=== PATIENT | female | born 1935 | race Caucasian/White ===

== ENCOUNTER → 2017-10-13 10:27 | Outpatient (CLI) | payer MEDICARE, OTHER, SELFPAY ==
[2017-10-13 12:23] LABS: Anion Gap 8 (5-15); BUN 16 mg/dL (7-18); BUN/Creat Ratio 22.2 RATIO (10-20); Calcium,Total 9.3 mg/dL (8.5-10.1); Chloride 105 mmol/L (98-107); Creatinine, Serum 0.72 mg/dL (0.55-1.02); EST Glomerular Filtration Rate 82 mL/min (>60); Est Glom Filt Rate - Afr Amer 100 mL/min (>60); Glucose 89 mg/dL (74-106); Potassium 3.7 mmol/L (3.5-5.1); Sodium Level 142 mmol/L (136-145); T4 Free Direct 1.12 ng/dL (0.76-1.46); Thyroid Stim Hormone (TSH) 4.06 uIU/mL (0.358-3.74)
== END ==
PROVIDERS: Family Provider Family Medicine; PCP Family Medicine; Visit Provider Family Medicine
DX: R94.6 Abnormal results of thyroid function studies (principal); I10 Essential (primary) hypertension
CPT/HCPCS: 36415; 80048; 84439; 84443

== ENCOUNTER 2017-11-12 14:44 | Emergency (ER) | payer OTHER, MEDICARE, SELFPAY ==
[2017-11-12 14:45] VITALS: BP 154/97; PULSE 75; RESP 18; TEMP 36.8; O2SAT 96; BMI 27.6
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
[2017-11-12 15:52] LABS: Absolute Lymphocyte Count 1.35 X10^3/ul (0.83-4.51); Absolute Neutrophil Count 1.9 X10^3/uL (2.0-7.7); Basophil# 0.05 X10^3/uL; Basophil% 1.2 % (0-1); Eosinophil# 0.14 X10^3/uL; Eosinophils% 3.5 % (0-5); Hematocrit 36.2 % (37-47); Hemoglobin 12.2 g/dl (12.0-15.0); Lymphocyte # 1.35 X10^3/ul (4.0); Lymphocyte % 33.7 % (19-41); Mean Corp Hgb Conc 33.7 g/gl (32-36); Mean Corpuscular Hgb 31.3 pg (27.0-32.0); Mean Corpuscular Volume 92.8 fL (81-99); Mean Platelet Vol. 10.3 fl (6.2-12.0); Monocyte# 0.52 X10^3/uL; Neutrophil # 1.93 X10^3/uL (2.7-7.7); Neutrophil % 48.1 % (47-70); Platelet Count 190 K/mm3 (150-450); RBC Distribution Width CV 12.2 % (11.6-14.6)
[2017-11-12 15:54] LABS: POSITIVE COUNT NO; POSITIVE DIFFERENTIAL NO; POSITIVE MORPHOLOGY NO
[2017-11-12 16:05] LABS: ALB/GLOB Ratio 1.4 RATIO (0.9-2.4); AST(SGOT) 28 U/L (15-37); Alanine Aminotransfer ALT/SGPT 28 U/L (13-56); Albumin, Serum 3.9 g/dL (3.2-5.0); Alkaline Phosphatase 82 U/L (45-117); Anion Gap 6 (5-15); BUN 16 mg/dL (7-18); BUN/Creat Ratio 22.2 RATIO (10-20); Calcium,Total 9.1 mg/dL (8.5-10.1); Chloride 104 mmol/L (98-107); Creatinine, Serum 0.72 mg/dL (0.55-1.02); EST Glomerular Filtration Rate 83 mL/min (>60); Est Glom Filt Rate - Afr Amer 100 mL/min (>60); Estimated Creatinine Clearance 38.86 ml/min; Globulin 2.7 g/dL (2.2-4.2); Glucose 95 mg/dL (74-106); Lipase 142 U/L (73-393); Potassium 3.6 mmol/L (3.5-5.1); Protein, Total 6.6 g/dL (6.4-8.2); Sodium Level 137 mmol/L (136-145)
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
[2017-11-12 16:49] LABS: Mucous, Urine 0 SEEN /hpf (<or=2+); Red Blood Cells-Urine 0 SEEN /hpf (0-5)
[2017-11-12 17:04] VITALS: BP 149/85; PULSE 74; RESP 13; O2SAT 97
[2017-11-12] MEDS: Diphth,Pertuss(Acell),Tet Vac 0.5 ML Vial IM (17:04)
[2017-11-12 17:10] LABS: Color, Urine Straw (Yellow); Glucose, Dipstick Normal (Normal); Ketone-Dipstick Negative (Negative); Leukocyte Esterase-Dipstick 25 /ul (Negative); Nitrite-Dipstick Negative (Negative); Occult Blood-Urine Negative /ul (Negative); Protein-Dipstick Negative (Negative); Urine Bilirubin Dipstick Negative (Negative); Urine Clarity Sl. Cloudy (Clear); Urine Urobilinogen Normal (Normal)
[2017-11-12 17:19] LABS: Bacteria RARE /hpf (None Seen); Squamous Epithelial Cells - UA 0-5 SEEN /hpf (5-10)
[2017-11-12 17:20] LABS: White Blood Cells 0-5 SEEN /hpf (0-5)
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
[2017-11-12] MEDS: oxyCODONE 5 MG Tablet PO (17:52)
[2017-11-12 19:00] VITALS: BP 140/91; PULSE 10; RESP 75; O2SAT 95
[2017-11-12] MEDS: Morphine 2 MG/ML Syringe IV (21:07)
[2017-11-12] MEDS: Ondansetron 4 MG/2 ML Vial IV (21:07)
[2017-11-12 21:13] VITALS: BP 171/94; PULSE 83; RESP 14; O2SAT 96
[2017-11-12 22:06] VITALS: BP 150/87; PULSE 80; RESP 12; O2SAT 95
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
== END 2017-11-12 22:10 | disposition short-term general hospital (02) ==
PROVIDERS: Emergency Provider Emergency Medicine; Family Provider Family Medicine; PCP Family Medicine
DX: S22.20XA Unspecified fracture of sternum, initial encounter for closed fracture (principal); S22.31XA Fracture of one rib, right side, initial encounter for closed fracture; S80.02XA Contusion of left knee, initial encounter; S80.01XA Contusion of right knee, initial encounter; S51.811A Laceration without foreign body of right forearm, initial encounter; Z23 Encounter for immunization; V43.62XA Car passenger injured in collision with other type car in traffic accident, initial encounter; Y93.9 Activity, unspecified; Y92.411 Interstate highway as the place of occurrence of the external cause; Y99.9 Unspecified external cause status; I10 Essential (primary) hypertension; E78.00 Pure hypercholesterolemia, unspecified
CPT/HCPCS: 70450; 71250; 71275; 72125; 73090; 73562; 74176; 80053; 81001; 83690; 84484; 85025; 90715; 93005; 99285; Q9967; A4216; J2405

== ENCOUNTER → 2018-02-16 09:14 | Outpatient (CLI) | payer MEDICARE, OTHER, SELFPAY ==
[2018-02-16 12:11] LABS: Absolute Lymphocyte Count 1.17 X10^3/ul (0.83-4.51); Basophil# 0.07 X10^3/uL; Basophil% 2.3 % (0-1); Eosinophil# 0.39 X10^3/uL; Eosinophils% 12.7 % (0-5); Hematocrit 37.1 % (37-47); Hemoglobin 12.4 g/dl (12.0-15.0); Lymphocyte # 1.17 X10^3/ul (4.0); Lymphocyte % 38.2 % (19-41); Mean Corp Hgb Conc 33.4 g/gl (32-36); Mean Corpuscular Hgb 31.7 pg (27.0-32.0); Mean Corpuscular Volume 94.9 fL (81-99); Monocyte# 0.46 X10^3/uL; Neutrophil # 0.97 X10^3/uL (2.7-7.7); Neutrophil % 31.8 % (47-70); Platelet Count 207 K/mm3 (150-450); RBC Distribution Width CV 12.6 % (11.6-14.6); RBC Distribution Width SD 42.6 fl (35.1-43.9); Red Blood Count 3.91 M/mm3 (4.2-5.4); White Blood Count 3.1 K/mm3 (4.4-11.0)
[2018-02-16 12:13] LABS: Differential Indicated SCAN CRITERIA MET; POSITIVE COUNT NO; POSITIVE DIFFERENTIAL YES; POSITIVE MORPHOLOGY NO
[2018-02-16 12:31] LABS: ALB/GLOB Ratio 1.3 RATIO (0.9-2.4); AST(SGOT) 24 U/L (15-37); Alanine Aminotransfer ALT/SGPT 30 U/L (13-56); Albumin, Serum 3.9 g/dL (3.2-5.0); Alkaline Phosphatase 82 U/L (45-117); Anion Gap 9 (5-15); BUN 12 mg/dL (7-18); BUN/Creat Ratio 16.4 RATIO (10-20); Chloride 106 mmol/L (98-107); Creatinine, Serum 0.73 mg/dL (0.55-1.02); EST Glomerular Filtration Rate 81 mL/min (>60); Est Glom Filt Rate - Afr Amer 98 mL/min (>60); Globulin 2.9 g/dL (2.2-4.2); Glucose 97 mg/dL (74-106); Potassium 3.8 mmol/L (3.5-5.1); Protein, Total 6.8 g/dL (6.4-8.2); Sodium Level 144 mmol/L (136-145); T4 Free Direct 1.06 ng/dL (0.76-1.46); Thyroid Stim Hormone (TSH) 3.48 uIU/mL (0.358-3.74)
== END ==
PROVIDERS: Family Provider Family Medicine; PCP Family Medicine; Visit Provider Family Medicine
DX: I10 Essential (primary) hypertension (principal); R94.6 Abnormal results of thyroid function studies; G47.00 Insomnia, unspecified
CPT/HCPCS: 36415; 80053; 84439; 84443; 85025

== ENCOUNTER → 2018-03-30 13:18 | Outpatient (CLI) | payer MEDICARE, OTHER, SELFPAY ==
[2018-03-30 15:49] LABS: Absolute Neutrophil Count 2.2 X10^3/uL (2.0-7.7); Basophil# 0.09 X10^3/uL; Basophil% 1.9 % (0-1); Eosinophil# 0.27 X10^3/uL; Eosinophils% 5.8 % (0-5); Hematocrit 37.6 % (37-47); Hemoglobin 12.3 g/dl (12.0-15.0); Lymphocyte % 34.2 % (19-41); Mean Corp Hgb Conc 32.7 g/gl (32-36); Mean Corpuscular Hgb 31.5 pg (27.0-32.0); Mean Corpuscular Volume 96.4 fL (81-99); Mean Platelet Vol. 11.2 fl (6.2-12.0); Monocyte# 0.52 X10^3/uL; Monocyte% 11.1 % (0-10); Neutrophil # 2.18 X10^3/uL (2.7-7.7); Neutrophil % 46.6 % (47-70); POSITIVE COUNT NO; POSITIVE DIFFERENTIAL NO; POSITIVE MORPHOLOGY NO; Platelet Count 239 K/mm3 (150-450); RBC Distribution Width SD 44.2 fl (35.1-43.9); White Blood Count 4.7 K/mm3 (4.4-11.0)
== END ==
PROVIDERS: Family Provider Family Medicine; PCP Family Medicine; Visit Provider Family Medicine
DX: D72.829 Elevated white blood cell count, unspecified (principal)
CPT/HCPCS: 36415; 85025

== ENCOUNTER → 2018-06-13 16:15 | Outpatient (CLI) | payer MEDICARE, OTHER, SELFPAY ==
--- NOTE | 2018-06-13 16:17 | CT_ITS ---
STUDY: CT ABDOMEN AND PELVIS WITHOUT CONTRAST REASON FOR EXAM: Female, 83 years old. Right lateral wall hernia RADIATION DOSAGE (If Supplied By Facility): CTDIvol = ( 11.21 ) mGy, DLP = ( 443.94 ) mGycm TECHNIQUE: Transaxial images were obtained from the dome of the diaphragm to the symphysis pubis without oral contrast, and without intravenous contrast. Sagittal and coronal images were reconstructed. Individualized dose optimization techniques were used for this CT. COMPARISON: None. FINDINGS: The lung bases are clear. A small 1.6 cm cyst is seen near the inferior pole of the right kidney. A second 1.3 cm cyst is in the left lobe.. No dilated intrahepatic biliary radicles. The gallbladder is normal with no calcifications within it. There is no pericholecystic fluid collection or streakiness The spleen is normal. The pancreas is normal. Both adrenals are normal. The kidneys are normal with no masses, calculi or hydronephrosis The stomach is normal. There is no bowel distention, acute appendicitis or diverticulitis. No constricting lesions are seen in large bowel. The abdominal wall is intact with no hernias. Specifically there is no right abdominal wall hernia. There is no ascites or any free intraperitoneal air. No indication of epiploic appendagitis The vascular structures in the retroperitoneum are normal. There is no retrocrural, retroperitoneal or mesenteric adenopathy. Bilateral total hip replacements. Extensive degenerative changes of the lower thoracic and lumbosacral spines plates and transpedicular screws through almost all the vertebral bodies. The urinary bladder is normal.--A pessary is in place. The uterus is not visualized.. There is no inguinal or pelvic adenopathy. There is no inguinal hernia. . CT/Abdomen/Pelvis without Cont IMPRESSION: No demonstration of an abdominal wall hernia. No acute findings in the abdomen or pelvis. Extensive degenerative changes of the lumbosacral spine with plates and transpedicular screws. Electronically Signed: Satya Guerra MD at 5:30 EST Tel , Service support ,
== END ==
PROVIDERS: Family Provider Family Medicine; PCP Family Medicine; Referring Provider Family Medicine; Visit Provider Family Medicine
DX: K43.9 Ventral hernia without obstruction or gangrene (principal)
CPT/HCPCS: 74176

== ENCOUNTER → 2018-09-28 11:04 | Outpatient (CLI) | payer MEDICARE, OTHER, SELFPAY ==
--- NOTE | 2018-09-28 11:08 | BI_ITS ---
MAMMOGRAPHY - BILATERAL SCREENING REASON FOR EXAM: Female, 83 years old. Routine annual screening examination. PERTINENT HISTORY: Remote right stereotactic breast biopsies. History of bilateral breast reduction surgery. TECHNIQUE: Digital bilateral breast linnea (3D mammographic acquisition) in the CC and MLO projections. 2-D mediolateral oblique (MLO) and craniocaudad (CC) views of both breasts were obtained. CAD: Full Field Digital Mammography with Computer Added Detection was performed. COMPARISON: Comparison is made with prior study dated February 15, 2017. FINDINGS: Breast Composition: There are scattered areas of fibroglandular density. There are no dominant masses or suspicious calcifications. Once again, 2 tissue clip markers are seen in the deep medial upper aspect of the right breast. No other significant abnormalities are identified. There has been no significant change since the prior study. BI/SCREENING MAMM (CAD), BILAT IMPRESSION: Stable bilateral screening mammogram. Yearly follow-up mammogram recommended. (A) ASSESSMENT CATEGORY: BIRADS Category 2: Benign. A letter regarding these results will be sent to the patient by the facility within 30 days. Approximately 10% of breast cancers are not detected by mammography. A normal mammogram should not delay biopsy of a clinically suspicious abnormality. [id number] Electronically Signed: Juan C Berry, at 12:40 EDT , Service support ,
--- NOTE | 2018-09-28 11:08 | BD_ITS ---
STUDY: DUAL ENERGY X-RAY ABSORPTIOMETRY / DXA REASON FOR EXAM: Female, 83 years old. The patient is postmenopausal. Loss of height. TECHNIQUE: Bone Mineral Density (BMD) measurements of both forearms were obtained. COMPARISON: None. FINDINGS: Right Forearm: g/cm2 (0.594) / T-score (-3.3) / Z-score (-0.4) Left Forearm: g/cm2 (0.537) / T-score (-4.0) / Z-score (-1.0) BD/Dexa Bone Density/Append Skel IMPRESSION: The patient is considered osteoporotic as outlined below according to World Rosahn Organization (WHO) criteria with a high fracture risk. Reference Information: The T-score is the number of standard deviations above or below the standard which is normal for young adults at their peak bone mineral density. The World Health Organization (WHO) interprets the T-scores as follows: Above -1 Normal bone density Between -1 and -2.5 Osteopenia Equal to / or below -2.5 Osteoporosis As a practical clinical guideline, osteopenia may be graded as follows: Mild -1 through -1.5 Moderate -1.6 through -2.0 Severe -2.1 through -2.4 The Z-score is the number of standard deviations above or below age-matched controls. A Z-score of less than -1.5 would be considered abnormal. References: 1. NIH Osteoporosis and Related Bone Diseases http://www.osteo.org 2. International Society for Clinical Densitometry http://www.iscd.org 3. National Osteoporosis Foundation http://www.nof.org Electronically Signed: Juan C Berry, at 15:06 EDT , Service support ,
== END ==
PROVIDERS: Family Provider Family Medicine; PCP Family Medicine; Referring Provider Family Medicine; Visit Provider Family Medicine
DX: Z12.31 Encounter for screening mammogram for malignant neoplasm of breast (principal); M81.0 Age-related osteoporosis without current pathological fracture
CPT/HCPCS: 77063; 77067; 77081

== ENCOUNTER → 2019-02-07 10:08 | Outpatient (CLI) | payer MEDICARE, OTHER, SELFPAY ==
[2019-02-07 12:22] LABS: Absolute Lymphocyte Count 1.68 X10^3/uL (0.83-4.51); Absolute Neutrophil Count 1.4 X10^3/uL (2.0-7.7); Basophil# 0.05 X10^3/uL; Basophil% 1.3 % (0-1); Eosinophil# 0.19 X10^3/uL; Eosinophils% 4.8 % (0-5); Hematocrit 39.5 % (37-47); Lymphocyte # 1.68 X10^3/ul (4.0); Lymphocyte % 42.2 % (19-41); Mean Corp Hgb Conc 32.9 g/dL (32-36); Mean Corpuscular Hgb 31.5 pg (27.0-32.0); Mean Corpuscular Volume 95.6 fL (81-99); Mean Platelet Vol. 10.5 fl (6.2-12.0); Monocyte# 0.62 X10^3/uL; Monocyte% 15.6 % (0-10); NRBC Flagged by Analyzer 0 % (0-5); Neutrophil # 1.42 X10^3/uL (2.7-7.7); Neutrophil % 35.6 % (47-70); Platelet Count 217 K/mm3 (150-450); RBC Distribution Width CV 11.9 % (11.6-14.6); RBC Distribution Width SD 41.6 fl (35.1-43.9); Red Blood Count 4.13 M/mm3 (4.2-5.4)
[2019-02-07 13:12] LABS: ALB/GLOB Ratio 1.4 RATIO (0.9-2.4); AST(SGOT) 24 U/L (15-37); Alanine Aminotransfer ALT/SGPT 30 U/L (13-56); Albumin, Serum 4.1 g/dL (3.2-5.0); Alkaline Phosphatase 92 U/L (45-117); Anion Gap 8 (5-15); BUN 16 mg/dL (7-18); BUN/Creat Ratio 21.8 RATIO (10-20); Calcium,Total 9.4 mg/dL (8.5-10.1); Chloride 100 mmol/L (98-107); Creatinine, Serum 0.73 mg/dL (0.55-1.02); EST Glomerular Filtration Rate 80 mL/min (>60); Est Glom Filt Rate - Afr Amer 97 mL/min (>60); Glucose 86 mg/dL (74-106); Potassium 3.4 mmol/L (3.5-5.1); Protein, Total 7.1 g/dL (6.4-8.2); Sodium Level 139 mmol/L (136-145); Thyroid Stim Hormone (TSH) 3.16 uIU/mL (0.358-3.74)
== END ==
PROVIDERS: Family Provider Family Medicine; PCP Family Medicine; Visit Provider Family Medicine
DX: I10 Essential (primary) hypertension (principal); R60.9 Edema, unspecified
CPT/HCPCS: 36415; 80053; 84443; 85025

== ENCOUNTER → 2019-02-17 13:19 | Outpatient (CLI) | payer MEDICARE, OTHER, SELFPAY ==
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
== END ==
PROVIDERS: Family Provider Family Medicine; PCP Family Medicine; Referring Provider Family Medicine; Visit Provider Family Medicine
DX: K43.9 Ventral hernia without obstruction or gangrene (principal)
CPT/HCPCS: 74150

== ENCOUNTER → 2020-03-06 11:02 | Outpatient (CLI) | payer MEDICARE, OTHER, SELFPAY ==
[2020-03-06 12:24] LABS: Absolute Lymphocyte Count 1.41 X10^3/uL (0.83-4.51); Absolute Neutrophil Count 1.8 X10^3/uL (2.0-7.7); Basophil# 0.06 X10^3/uL; Basophil% 1.5 % (0-1); Eosinophil# 0.16 X10^3/uL; Hematocrit 41.4 % (37-47); Hemoglobin 13.3 g/dL (12.0-15.0); Lymphocyte # 1.41 X10^3/ul (4.0); Lymphocyte % 35.3 % (19-41); Mean Corp Hgb Conc 32.1 g/dL (32-36); Mean Corpuscular Hgb 30.9 pg (27.0-32.0); Mean Corpuscular Volume 96.3 fL (81-99); Mean Platelet Vol. 9.9 fl (6.2-12.0); Monocyte# 0.52 X10^3/uL; NRBC Flagged by Analyzer 0 % (0-5); Neutrophil # 1.84 X10^3/uL (2.7-7.7); Neutrophil % 45.9 % (47-70); Platelet Count 260 K/mm3 (150-450); RBC Distribution Width CV 11.8 % (11.6-14.6); RBC Distribution Width SD 41.4 fl (35.1-43.9)
[2020-03-06 13:09] LABS: ALB/GLOB Ratio 1.2 RATIO (0.9-2.4); AST(SGOT) 18 U/L (15-37); Alanine Aminotransfer ALT/SGPT 24 U/L (13-56); Albumin, Serum 4.1 g/dL (3.2-5.0); Alkaline Phosphatase 69 U/L (45-117); Anion Gap 4 (5-15); BUN 14 mg/dL (7-18); BUN/Creat Ratio 20.6 RATIO (10-20); Calcium,Total 9.1 mg/dL (8.5-10.1); Chloride 106 mmol/L (98-107); Cholesterol 174 mg/dL (200); Creatinine, Serum 0.68 mg/dL (0.55-1.02); EST Glomerular Filtration Rate 88 mL/min (>60); Est Glom Filt Rate - Afr Amer 106 mL/min (>60); Globulin 3.3 g/dL (2.2-4.2); Glucose 84 mg/dL (74-106); High Density Lipoprotein 57 mg/dL; Potassium 3.6 mmol/L (3.5-5.1); Protein, Total 7.4 g/dL (6.4-8.2); Sodium Level 140 mmol/L (136-145); Thyroid Stim Hormone (TSH) 3.69 uIU/mL (0.358-3.74); Triglycerides 121 mg/dL; Very Low Density Lipoprotein 24 mg/dL (5-40)
[2020-03-06 13:45] LABS: Vitamin D,25 Hydroxy 48.9 ng/mL
== END ==
PROVIDERS: PCP Family Medicine; Visit Provider Family Medicine
DX: I10 Essential (primary) hypertension (principal); E78.5 Hyperlipidemia, unspecified; M06.9 Rheumatoid arthritis, unspecified; M81.0 Age-related osteoporosis without current pathological fracture
CPT/HCPCS: 36415; 80053; 80061; 82306; 84443; 85025

== ENCOUNTER 2020-07-18 11:02 | Outpatient (RCR) | payer MEDICARE, OTHER, SELFPAY | END 2020-07-18 23:59 | LOC: IMMUN 11:02 | PROVIDERS: PCP Family Medicine; Visit Provider Family Medicine | DX: Z23 Encounter for immunization (principal) | CPT/HCPCS: 0011A; 0012A; 91301 ==

== ENCOUNTER → 2020-11-04 13:11 | Outpatient (CLI) | payer MEDICARE, OTHER, SELFPAY ==
--- NOTE | 2020-11-04 13:14 | BI_ITS ---
MAMMOGRAPHY - BILATERAL SCREENING 3-D TOMOSYNTHESIS REASON FOR EXAM: Female, 85 years old. Routine screening PERTINENT HISTORY: Previous reduction surgery and biopsies. TECHNIQUE: 2-D mammograms and 3-D Tomosynthesis of the breast (s) were performed. CAD was performed. COMPARISON: 09/28/2018 FINDINGS: The breast composition is composed of scattered fibroglandular density. Scattered benign calcifications are seen. No dense spiculated masses or suspicious microcalcifications are identified. Stable architectural distortion from previous surgery and biopsies.. There is no skin thickening or retraction. There has been no significant change since the prior study. BI/SCRN MAMM (CAD)W/LUCIAN BILAT IMPRESSION: No mammographic signs of malignancy. Routine yearly mammograms recommended. ASSESSMENT CATEGORY: BIRADS Category 2: Benign. A letter regarding these results will be sent to the patient by the facility within 30 days. FOLLOW UP RECOMMENDATION: Yearly follow up mammogram recommended. (A) Approximately 10% of breast cancers are not detected by mammography. A normal mammogram should not delay biopsy of a clinically suspicious abnormality. Electronically Signed: Carlos Ventura MD at 14:51 EDT , Service support ,
== END ==
PROVIDERS: PCP Family Medicine; Referring Provider Obstetrics & Gynecology; Visit Provider Obstetrics & Gynecology
DX: Z12.31 Encounter for screening mammogram for malignant neoplasm of breast (principal)
CPT/HCPCS: 77063; 77067

== ENCOUNTER 2022-09-15 10:56 | Emergency (ER) | payer MEDICARE, OTHER, SELFPAY ==
[2022-09-15 10:58] VITALS: BP 162/78; PULSE 66; RESP 14; TEMP 37.2; O2SAT 96; BMI 28.9
[2022-09-15 11:03] VITALS: BP 162/78; PULSE 65; RESP 13; O2SAT 96
--- NOTE | 2022-09-15 11:14 | EKG12_ITS ---
Test Reason : Blood Pressure : / mmHG Vent. Rate : 067 BPM Atrial Rate : 067 BPM P-R Int : 198 ms QRS Dur : 088 ms QT Int : 420 ms P-R-T Axes : 040 006 042 degrees QTc Int : 443 ms Normal sinus rhythm Nonspecific T wave abnormality Abnormal ECG Confirmed by KAMI CALLOWAY, RADHA ([id number]), sports editor NATHALY KELLEY ([id number]) on 09/21/2022 6:50:58 AM Referred By: Confirmed By:ZULLY MCCLURE MD
--- NOTE | 2022-09-15 11:15 | EX.ED.DYSGE1 ---
HPI History of Present Illness Chief Complaint: Mental Status Change Detail of Chief Complaint: Transient hypotension resolved. Informant: patient and family Onset/Context/Timing Onset: Today Context: Sudden Onset Timing: Intermittent Current Severity: Mild Maximum Severity: Mild Narrative Narrative: 87-year-old female today was at home checked her blood pressure 117/70 took her blood pressure medication. Ate breakfast had some coffee when she went to stand to go to the bathroom to get her bath she felt lightheaded. There is family members were there they checked her blood pressures it was reading low at 85/35. She seemed to get transiently confused. She had not no recent illness and no nausea, vomiting or diarrhea. No fever. No dysuria. She had surgery 2 weeks ago she was in the hospital 1 day and discharged the following day. She has been doing well. Currently says she feels fine her blood pressure is 162/78. Prior similar symptoms: Yes Recent Illness/Hospitalization: No PFSH PFSH Home Medications alprazolam 1 mg tablet (Xanax) 1 mg PO QHS 11/12/17 [History Last Taken Unknown] aspirin 81 mg chewable tablet 81 mg PO DAILY@0800 11/12/17 [History Last Taken Unknown] clonidine HCl 0.1 mg tablet 0.1 mg PO DAILY 11/12/17 [History Last Taken Unknown] conjugated estrogens 0.625 mg tablet (Premarin) 1 dose transdermal QWEEK 11/12/17 [History Last Taken Unknown] diltiazem HCl 240 mg capsule,extended release 24 hr 240 mg PO DAILY 11/12/17 [History Last Taken Unknown] furosemide 20 mg tablet 20 mg PO DAILY PRN EDEMA 11/12/17 [History Last Taken Unknown] labetalol 200 mg tablet 200 mg PO BID 11/12/17 [History Last Taken Unknown] lisinopril 40 mg tablet 40 mg PO DAILY 11/12/17 [History Last Taken Unknown] multivitamin with minerals (Hair,Skin and Nails tablet) 1 ea PO DAILY 11/12/17 [History Last Taken Unknown] nirmatrelvir 300 mg (150 mg x2)-ritonavir 100 mg tablet,dose pack(EUA) (Paxlovid) See Rx Instructions PO .COMPLEX #30 tabs 05/07/22 [Rx Last Taken Unknown] amlodipine 5 mg tablet mg 09/15/22 [History Last Taken Unknown] Allergy/AdvReac Type Severity Reaction Status Date / Time No Known Allergies Allergy Verified 05/07/22 12:59 Social History Smoking Status: Former smoker ROS ROS ED ROS Narrative Denies recent illness. No nausea, vomiting or diarrhea. No fever. No headache or chest pain. No shortness of breath. No abdominal pain. No dysuria. She does have a history of urinary retention. Review of Systems ROS Unobtainable: Denies due to encephalopathy Constitutional Constitutional ED: Denies chills or fever(s) Eyes Eyes: Denies blurry vision ENT ENT ED: Denies ear pain Cardiovascular Cardiovascular: Denies chest pain Respiratory/Chest Respiratory/Chest: Denies cough or dyspnea Gastrointestinal Gastrointestinal: Denies abdominal pain Genitourinary Genitourinary ED: Denies dysuria or hematuria Musculoskeletal Musculoskeletal: Denies arthralgias Integumentary Denies abscess Neurologic Neurologic: Denies headache(s) Psychiatric Psychiatric: Denies anxiety or depression Endocrine Endocrinology: Denies cold intolerance Hematologic/Lymphatic Hematologic/Lymphatic: Reports none Allergic/Immunologic Allergic/Immunologic ED: Denies mouth swelling or tongue swelling EXAM Physical Exam Narrative Exam Narrative: 87-year-old female no acute distress. Vital signs are stable afebrile. Family in the room. H EENT exam unremarkable. Moist with membranes. Pupils round reactive light. Normal speech. Neck nontender. No JVD. No lymphadenopathy. Lungs clear to auscultation bilateral. Heart regular rhythm no murmur. Abdomen soft nontender normal bowel sounds no peritoneal signs. Well-healing laparoscopic incisions. Dry and clean. Moving all 4 extremities. Calves nontender without edema or cords. Neurologically she is awake alert with no focal motor deficits. Normal strength. Normal speech. Answering questions and following commands. Const Vital Signs: 09/15/22 10:58 09/15/22 11:03 09/15/22 11:31 Temperature 98.9 F Temperature Source Temporal Pulse Rate 66 65 Pulse Rate [Lying] Pulse Rate [Sitting (for 1 minute prior to obtaining)] Pulse Rate [Standing (for 1 minute prior to obtaining)] Respiratory Rate 14 13 Blood Pressure 162/78 H 162/78 H Blood Pressure [Lying] Blood Pressure [Sitting (for 1 minute prior to obtaining)] Blood Pressure [Standing (for 1 minute prior to obtaining)] Blood Pressure Mean 106 106 Blood Pressure Mean [Lying] Blood Pressure Mean [Sitting (for 1 minute prior to obtaining)] Blood Pressure Mean [Standing (for 1 minute prior to obtaining)] Pulse Ox 96 96 98 Oxygen Delivery Method Room Air Room Air Room Air 09/15/22 12:30 09/15/22 13:25 Temperature Temperature Source Pulse Rate 71 Pulse Rate [Lying] 71 Pulse Rate [Sitting (for 1 minute prior to obtaining)] 73 Pulse Rate [Standing (for 1 minute prior to obtaining)] 76 Respiratory Rate 14 Blood Pressure 155/82 H Blood Pressure [Lying] 147/85 H Blood Pressure [Sitting (for 1 minute prior to obtaining)] 159/82 H Blood Pressure [Standing (for 1 minute prior to obtaining)] 151/78 H Blood Pressure Mean 106 Blood Pressure Mean [Lying] 105 Blood Pressure Mean [Sitting (for 1 minute prior to obtaining)] 107 Blood Pressure Mean [Standing (for 1 minute prior to obtaining)] 102 Pulse Ox 99 Oxygen Delivery Method Room Air Positive well nourished and well developed; Negative for obese, cachectic or contractures General Appearance ED: well developed and NAD; Negative for cachectic, contractures, cyanotic or diaphoretic Nutritional Appearance: Negative for cachectic or obese HEENT Reports moist mucous membranes; Denies dry mucous membranes Negative for trauma or tenderness Mouth ED: No dry mucous membranes Mouth: No dry mucous membranes Eyes PERRL and EOMs intact bilaterally General Eye ED: Negative for pale conjunctiva or scleral icterus Neck no lymphadenopathy, supple and no JVD General: Negative for tenderness Lymph Lymphatic: Negative for other Chest Wall inspection of chest normal and palpation of chest normal Chest: Negative for other Resp normal respiratory effort and clear to auscultation bilaterally Effort and Inspection: Negative for retractions Auscultation: Negative for rales, rhonchi or wheezes Cardio regular rate, regular rhythm, S1 normal heart sound, S2 normal heart sound and no murmurs GI normal to inspection, nondistended, normoactive bowel sounds, non-tender, non-distended and no masses Inspection: Negative for abdominal distention Auscultation: normoactive bowel sounds Palpation: soft; Negative for tender or guarding Back/Spine no CVA tenderness General Back: Negative for CVA tenderness Cervical Spine: Negative for cervical spine tenderness Thoracic Spine / Upper Back: Negative for thoracic spinal tenderness Lumbar Spine / Lower Back: Negative for lumbar spinal tenderness Extremity Negative for normal to inspection General Extremety ED: Negative for edema or tenderness General Extremity: Negative for edema Neuro oriented x3 and CN's II-XII intact bilaterally Sensorium / Orientation: alert; Negative for orientation impaired, lethargic or stuporous Motor Exam: strength 5/5 throughout Psych mental status grossly normal Appearance: Negative for other Attitude: No agitated Mood & Affect: Negative for depressed, anxious or tearful Skin no rashes or lesions noted, no wounds and skin turgor normal General Skin Exam: Negative for elasticity normal Lesions: No lesion noted Rashes: No rashes noted Trauma: Negative for abrasion Wounds: Negative for wounds noted MDM MDM MDM Narrative Medical decision making narrative: 87-year-old female clinically looks well. Elevated back experiencing episode of hypotension. She has not recently been ill. She did have surgery 2 weeks ago. She has had no chest pain or shortness of breath. Currently has no complaints. Screening labs will be obtained. Differential could be infection, dehydration but she has no history of vomiting or diarrhea. No fever. Could be a dysrhythmia. Could have been a vagal response or medication related. Patient was treated with a liter of fluid. Her blood pressures significantly improved. Since stable the entire time here. Repeat exam patient is doing well at 2:10 PM. Her vital signs are stable. Her blood pressure is good. She clinically looks and feels well. I did review her left lateral chest wall and she does have a small area of subcu air which I think is secondary to her recent laparoscopic surgery and air being absorbed in that area. There is no signs of cellulitis or any type of infection. It is nontender. Her laparoscopic incisions are dry and clean. Patient and family are comfortable with her being discharged home. To watch her blood pressures. History & Record Review Discussion w/independent historian: Patient and Family Lab Data Attestation: I reviewed the patient's lab results. Lab results narrative: CBC shows a normal white count 9.8. H&H 12.5 and 38. Platelets 412. Chemistries are unremarkable gap of 7. BUN 21 creatinine 0.86 with mild dehydration. Glucose of 108. Troponin is normal at 6. Urinalysis is 5-10 white cells. No red cells. No nitrates. 5-10 epithelial cells consistent with contamination. 1+ bacteria. She is having no urinary symptoms. Patient has chronic urinary retention. Labs: Laboratory Results - last 24 hr 09/15/22 09/15/22 09/15/22 11:15 11:15 12:30 WBC 9.8 RBC 3.87 L Hgb 12.5 Hct 38.1 MCV 98.4 MCH 32.3 H MCHC 32.8 RDW Std Deviation 45.0 H RDW Coeff of Valeriy 12.4 Plt Count 412 MPV 9.7 Immature Gran % (Auto) 0.600 Neut % (Auto) 69.7 Lymph % (Auto) 18.4 L [place] % (Auto) 6.3 Eos % (Auto) 3.7 Baso % (Auto) 1.3 H Absolute Neuts (auto) 6.9 Absolute Lymphs (auto) 1.81 Nucleated RBC % 0 Sodium 138 Potassium 3.7 Chloride 102 Carbon Dioxide 29.0 Anion Gap 7 BUN 21 H Creatinine 0.84 Estim Creat Clear Calc 42.80 Est GFR (MDRD) Af Amer 82 Est GFR (MDRD) Non-Af 68 BUN/Creatinine Ratio 24.9 H Glucose 108 H Calcium 9.7 Troponin I High Sens 6 Urine Color Yellow Urine Clarity Clear Urine pH 7.0 Ur Specific [place] 1.010 Urine Protein 15 H Urine Glucose (UA) Normal Urine Ketones Negative Urine Occult Blood Negative Urine Nitrite Negative Urine Bilirubin Negative Urine Urobilinogen Normal Ur Leukocyte Esterase 25 H Urine RBC 0 SEEN Urine WBC 5-10 SEEN Ur Squamous Epith Cells 5-10 SEEN Urine Bacteria 1+ Urine Mucus 0 SEEN Radiography Chest X-Ray - ED: 1 View, Read by ED Physician, Heart, Lungs, Mediastinum, Bony Structures, No Acute Disease and Chronic Changes Diagnostic Testing: Clinical Impression(s) from Imaging Studies Chest X-Ray 09/15/22 11:40 IMPRESSION: Left lower lateral chest wall subcutaneous emphysema, which may be secondary to penetrating injury or soft tissue infection absent a recent history of surgery. Electronically Signed: Martina Phan MD at 12:11 EDT , Chest x-ray shows normal cardiac silhouette normal lungs. There is left lower chest wall subcu air. That is consistent with the patient having recent laparoscopic surgery and I suspect that is air that has been absorbed postoperatively. She has no abdominal pain. It a portable film interpreted both by myself and the radiologist. Rhythm Strip Rhythm Strip: Sinus Rhythm Rate: 67 Ectopy: None EKG Initial EKG: Attestation: I personally reviewed and interpreted this EKG as follows: Interpretation: Sinus Rhythm and No Acute Injury Pattern Comments: Normal sinus rhythm rate of 67 no acute signs of [place] or ischemia. Discharge Plan Triage Chief Complaint: Mental Status Change ED Provider: Tang Jurado Dx/Rx/DC Orders Clinical Impression: Transient hypotension, Acute dehydration, History of recent surgery Instructions: ED Dehydration (Adult) Prescriptions: No Action Paxlovid (EUA) 300 mg (150 mg x 2)-100 mg tablets,dose pack See Rx Instructions PO .COMPLEX Qty: 30 0RF Rx Instructions: take TWO 150 mg tablets of nirmatrelvir with ONE 100 mg tablet of ritonavir twice daily for 5 days PO clonidine HCl 0.1 MG tablet 0.1 mg PO DAILY labetalol 200 MG tablet 200 mg PO BID alprazolam [Xanax] 1 MG tablet 1 mg PO QHS diltiazem HCl 240 MG capsule 240 mg PO DAILY conjugated estrogens [Premarin] 0.625 MG tablet 1 dose transdermal QWEEK aspirin 81 MG tablet,chewable 81 mg PO DAILY@0800 furosemide 20 MG tablet 20 mg PO DAILY PRN (Reason: EDEMA) multivitamin with minerals [Hair,Skin and Nails] 1 EACH tablet 1 ea PO DAILY lisinopril 40 MG tablet 40 mg PO DAILY amlodipine 5 mg tablet Label Comments: TAKE 1 TABLET BY MOUTH DAILY Primary Care Provider: Eli Patel Referrals: Rolo Harry MD [Non-Staff] - 3-5 Days if not improving Activity Restrictions/Additional Instructions: Plenty of fluids and rest. Follow-up with your doctor if not improving return if you are feeling worse. I think you are mildly dehydrated and then when he took your blood pressure medication it dropped your pressure and when your blood pressure was low that is what made you confused and feel weak. You were treated here with a liter of fluid which should help. Otherwise your labs look good. Disposition Disposition: Home, Self Care
[2022-09-15 11:25] LABS: Absolute Lymphocyte Count 1.81 X10^3/uL (0.83-4.51); Absolute Neutrophil Count 6.9 X10^3/uL (2.0-7.7); Basophil# 0.13 X10^3/uL; Basophil% 1.3 % (0-1); Eosinophil# 0.36 X10^3/uL; Eosinophils% 3.7 % (0-5); Hematocrit 38.1 % (37-47); Hemoglobin 12.5 g/dL (12.0-15.0); Lymphocyte # 1.81 X10^3/ul (0.83-4.51); Lymphocyte % 18.4 % (19-41); Mean Corp Hgb Conc 32.8 g/dL (32-36); Mean Corpuscular Hgb 32.3 pg (27.0-32.0); Mean Corpuscular Volume 98.4 fL (81-99); Mean Platelet Vol. 9.7 fl (6.2-12.0); Monocyte# 0.62 X10^3/uL; Monocyte% 6.3 % (0-10); NRBC Flagged by Analyzer 0 % (0-5); Neutrophil # 6.86 X10^3/uL (2.7-7.7); Neutrophil % 69.7 % (47-70); Platelet Count 412 K/mm3 (150-450); RBC Distribution Width CV 12.4 % (11.6-14.6); Red Blood Count 3.87 M/mm3 (4.2-5.4); White Blood Count 9.8 K/mm3 (4.4-11.0)
[2022-09-15] MEDS: 0.9% Normal Saline 1,000 ML 1000 ML IV (11:30)
[2022-09-15 11:31] VITALS: O2SAT 98
--- NOTE | 2022-09-15 11:40 | RAD_ITS ---
HISTORY: chest pain. TECHNIQUE: XR Chest 1 View. COMPARISON: CT 11/12/2017. FINDINGS: CARDIOMEDIASTINAL BORDERS: Cardiac silhouette within normal limits in size. Mediastinal contour unchanged with tortuosity and calcification of the aorta. LUNGS: Radiographically clear. PLEURA: No pleural effusion or pneumothorax seen. OSSEOUS STRUCTURES: Degenerative change. Thoracolumbar fixation hardware again seen. Left lower lateral subcutaneous emphysema noted. RAD/Chest 1 View (Portable) IMPRESSION: Left lower lateral chest wall subcutaneous emphysema, which may be secondary to penetrating injury or soft tissue infection absent a recent history of surgery. Electronically Signed: Martina Phan MD at 12:11 EDT ,
[2022-09-15 11:48] LABS: Anion Gap 7 (5-15); BUN 21 mg/dL (7-18); BUN/Creat Ratio 24.9 RATIO (10-20); Calcium,Total 9.7 mg/dL (8.5-10.1); Chloride 102 mmol/L (98-107); Creatinine, Serum 0.84 mg/dL (0.55-1.02); EST Glomerular Filtration Rate 68 mL/min (>60); Est Glom Filt Rate - Afr Amer 82 mL/min (>60); Glucose 108 mg/dL (74-106); Potassium 3.7 mmol/L (3.5-5.1); Sodium Level 138 mmol/L (136-145); Troponin-I HS 6 pg/mL (3.0-54.0)
[2022-09-15 12:30] VITALS: BP 147/85; BP 151/78; BP 159/82; PULSE 71; PULSE 73; PULSE 76
[2022-09-15 13:12] LABS: Mucous, Urine 0 SEEN /hpf (<or=2+); Red Blood Cells-Urine 0 SEEN /hpf (0-5)
[2022-09-15 13:20] LABS: Color, Urine Yellow (Yellow); Glucose, Dipstick Normal (Normal); Ketone-Dipstick Negative (Negative); Leukocyte Esterase-Dipstick 25 /ul (Negative); Nitrite-Dipstick Negative (Negative); Occult Blood-Urine Negative /ul (Negative); Protein-Dipstick 15 mg/dl (Negative); Urine Bilirubin Dipstick Negative (Negative); Urine Clarity Clear (Clear); Urine Urobilinogen Normal (Normal)
[2022-09-15 13:25] VITALS: BP 155/82; PULSE 71; RESP 14; O2SAT 99
[2022-09-15 13:48] LABS: White Blood Cells 5-10 SEEN /hpf (0-5)
[2022-09-15 13:49] LABS: Bacteria 1+ /hpf (None Seen); Squamous Epithelial Cells - UA 5-10 SEEN /hpf (5-10)
[2022-09-15 14:18] VITALS: BP 148/86; PULSE 73; RESP 14; O2SAT 95
== END 2022-09-15 14:28 | disposition home or self-care (01) ==
PROVIDERS: Emergency Provider Emergency Medicine; PCP Student in an Organized Health Care Education/Training Program; Visit Provider Emergency Medicine
DX: E86.0 Dehydration (principal); I95.89 Other hypotension; Z87.891 Personal history of nicotine dependence; R41.82 Altered mental status, unspecified; Z79.82 Long term (current) use of aspirin
CPT/HCPCS: 71045; 80048; 81001; 84484; 85025; 93005; 99285; J7030; P9612

== ENCOUNTER 2022-11-05 17:47 | Emergency (ER) | payer MEDICARE, OTHER, SELFPAY ==
[2022-11-05] VITALS (10 sets, daily range): BP systolic 102–208; BP diastolic 56–105; PULSE 69–87; RESP 12–16; TEMP 36.6; O2SAT 95–98; BMI 29.0
--- NOTE | 2022-11-05 18:02 | RAD_ITS ---
INDICATION: Left hip pain, syncope and fall. EXAMINATION/TECHNIQUE: X-RAY - LEFT XR Hip Unilateral with Pelvis when performed; 2-3 Views. 3 views. COMPARISON: None. FINDINGS: Diffuse osteopenia. Bilateral total hip arthroplasties. No dislocation of the hardware. No left valerie-hardware fracture. Lower lumbar fusion hardware, incompletely imaged. Symmetric degenerative changes of the sacroiliac joints. RAD/HIP, UNI W/ Pelvis 2-3 Views IMPRESSION: No acute osseous injury. Electronically Signed: Augustine Self MD at 19:32 EDT ,
--- NOTE | 2022-11-05 18:02 | RAD_ITS ---
INDICATION: Left knee and leg pain, syncope, fall. EXAMINATION/TECHNIQUE: X-RAY - LEFT XR Tibia/Fibula 2 Views. 2 views. COMPARISON: None. FINDINGS: SOFT TISSUES: No soft tissue swelling or gas. No radiopaque foreign body. Calcifications in the soft tissues. BONES/JOINTS: No acute fracture or subluxation. Normal alignment. Preservation of the joint spaces. No sclerotic or destructive changes observed. RAD/Tibia & Fibula 2 Views IMPRESSION: No acute osseous injury. Electronically Signed: Augustine Self MD at 19:30 EDT ,
--- NOTE | 2022-11-05 18:02 | CT_ITS ---
INDICATION: Neck pain after syncope, fall. EXAMINATION: CT Spine Cervical W/O Contrast Injection TECHNIQUE: Helically acquired images were obtained of the cervical spine. 2D reformatted images were reviewed. A radiation dose optimization technique was used for this scan. IV Contrast dosage and agent: None. COMPARISON: November 12, 2017 CT cervical spine examination. CT brain exam November 05, 2022. FINDINGS: VERTEBRAE: No acute fracture. There is diffuse osteopenia. Fusion of the C3 and C4 vertebral bodies. Grade 1 anterolisthesis of C2 upon C3 and C7 upon T1. There is leftward curvature of the cervicothoracic spine centered at the cervicothoracic junction level. Multilevel facet arthropathy. DISCS and SPINAL CANAL: Multilevel degenerative disc disease changes throughout the cervical spine and within the visualized upper thoracic spine at T2-3 through T4-5. There is significant osseous or foraminal compromise from C4-5 through C6-7. NECK SOFT TISSUES: No prevertebral soft tissue swelling. There is no cervical adenopathy. Arterial vascular calcifications in the neck soft tissues. Thyroid gland is unremarkable. LUNG APICES: Clear. Ectatic appearing aortic arch, incompletely imaged. CT/Spine Cervical without Contras IMPRESSION: No acute cervical spine osseous injury. Multilevel cervical spondylosis changes. See CT brain, right hemispheric extra-axial hemorrhage. Electronically Signed: Augustine Self MD at 19:14 EDT ,
--- NOTE | 2022-11-05 18:02 | RAD_ITS ---
INDICATION: Left knee pain, syncope and fall. EXAMINATION/TECHNIQUE: X-RAY - LEFT XR Knee 1 or 2 Views. 2 views. COMPARISON: None. FINDINGS: SOFT TISSUES: No soft tissue swelling or gas. No radiopaque foreign body. Calcifications in the soft tissues. BONES/JOINTS: No acute fracture or subluxation. Normal alignment. Preservation of the joint space. No sclerotic or destructive changes observed. RAD/Knee 1 or 2 Views IMPRESSION: No acute osseous injury. Electronically Signed: Augustine Self MD at 19:27 EDT ,
--- NOTE | 2022-11-05 18:02 | CT_ITS ---
INDICATION: Syncope, fall, rib pain. EXAMINATION: CT CHEST WITHOUT CONTRAST TECHNIQUE: Helically acquired images were obtained of the chest. A radiation dose optimization technique was used for this scan. IV Contrast dosage and agent: None. COMPARISON: CT chest exam November 12, 2017. Chest x-ray September 15, 2017. FINDINGS: LUNGS, PLEURA AND LARGE AIRWAYS: No focal consolidation. No significant pleural effusion. No pneumothorax. Interstitial coarsening in both lungs. Macrocalcifications in the right breast soft tissues. THYROID: No thyroid lesions. HEART AND PERICARDIUM: Mild cardiomegaly. Extensive coronary artery calcification is present. Trace pericardial effusion. Apparent intraatrial septal device in place. VESSELS: Dilatation of the ascending aorta, 4 cm diameter. Atherosclerotic calcification and tortuosity of the thoracic aorta. Upper normal caliber main pulmonary arteries. MEDIASTINUM AND ANYI: No mediastinal or hilar adenopathy. Tracheobronchial calcifications. Esophagus is unremarkable.. No hiatal hernia. UPPER ABDOMEN: No acute pathology. Subcentimeter cystic hypodensities in both lobes of the liver, no follow-up recommended. BONES: No suspicious lytic or blastic abnormality. Diffuse osteopenia. Drum Filler image demonstrates multilevel lumbar posterolateral fusion hardware. Multilevel degenerative changes of the thoracic spine. Old, healed sternal fracture and old healed right-sided rib fractures. No displaced rib fracture identified. There is a large right shoulder paralabral cyst and advanced glenohumeral joint osteoarthritis bilaterally. CT/Chest without Contrast IMPRESSION: No acute thoracic injury. Ascending aortic aneurysm. Cardiomegaly, coronary artery calcification. Old sternal and right rib fracture. Lumbar fusion hardware, partially imaged. Other chronic changes as described. Electronically Signed: Augustine Self MD at 19:20 EDT ,
--- NOTE | 2022-11-05 18:02 | CT_ITS ---
We are attempting to reach an attending provider to discuss findings. An addendum with communication details will be sent when the communication is complete. INDICATION: Headache after injury. EXAMINATION: CT Head or Brain W/O Contrast Injection TECHNIQUE: Multiple axial images were obtained of the head without intravenous contrast. A radiation dose optimization technique was used for this scan. IV Contrast dosage and agent: None. COMPARISON: November 12, 2017 CT brain. FINDINGS: BRAIN PARENCHYMA/CSF SPACES: There is a right hemispheric [id number] hemorrhage most focal in the right temporal region with a glide-CSF level, measuring a maximum of 1 cm in diameter causing local mass effect. At the right parietal level there is also a blood-CSF level, with the hemorrhage measuring a maximum of 7.5 mm in diameter. There is no midline shift. No hydrocephalus. Basal cisterns are patent. No parenchymal hemorrhage. Diffuse parenchymal volume loss and small vessel ischemic disease changes, appropriate for age. CALVARIUM, SKULL BASE, PARANASAL SINUSES AND MASTOID AIR CELLS: Paranasal sinuses are clear. Trace right mastoid effusion. No discrete lytic or blastic abnormalities. No calvarial fracture. Left high parietal scalp mildly hyperintense nodule, likely sebaceous cyst, present on the prior examination, increased in size, now 1.7 x 1.2 cm. ORBITS: Bilateral cataract repair. No acute orbital abnormality. ASPECTS Score for Acute Strokes: 10 CT/Brain/Head without Contrast IMPRESSION: Right hemispheric subdural hemorrhage with local mass effect. No midline shift. Short-term follow-up no imaging is recommended. Electronically Signed: Augustine Self MD at 19:07 EDT ,
--- NOTE | 2022-11-05 18:04 | EX.ED.DYSGE1 ---
HPI <GASPER Reveles - Last Filed: 11/05/22 19:37> History of Present Illness Chief Complaint: Syncope Narrative Narrative: 87-year-old female with PMH of HTN presents after witnessed syncopal episode. She was standing in the kitchen with her daughter pouring juice when she suddenly fell and passed out striking the left side of her face on the ground. Daughter states she came to and a few seconds and then passed out again for several seconds. After awakening again she was somewhat confused for about 10 minutes until EMS arrived. There was no seizure activity or incontinence. She states she has been feeling in good health this week and did not have any warning that she was about to pass out. No chest pain or shortness of breath. She is on aspirin 81 mg but no blood thinners. She has a remote history of surgery to repair pair a PFO but has no other cardiac issues. Daughter states she has passed out in the past with low blood pressures but always felt lightheaded prior to the event. PFSH <GASPER Reveles - Last Filed: 11/05/22 19:37> [facility] Medical History (Updated 11/05/22 @ 19:28 by GASPER Reveles) Cystocele HTN (hypertension) Rectocele Home Medications aspirin 81 mg chewable tablet 81 mg PO DAILY@0800 11/12/17 [History Last Taken Unknown] clonidine HCl 0.1 mg tablet 0.1 mg PO DAILY 11/12/17 [History Last Taken Unknown] conjugated estrogens 0.625 mg tablet (Premarin) 1 dose transdermal QWEEK 11/12/17 [History Last Taken Unknown] diltiazem HCl 240 mg capsule,extended release 24 hr 240 mg PO DAILY 11/12/17 [History Last Taken Unknown] furosemide 20 mg tablet 20 mg PO DAILY PRN EDEMA 11/12/17 [History Last Taken Unknown] labetalol 200 mg tablet 200 mg PO BID 11/12/17 [History Last Taken Unknown] lisinopril 40 mg tablet 40 mg PO DAILY 11/12/17 [History Last Taken Unknown] multivitamin with minerals (Hair,Skin and Nails tablet) 1 ea PO DAILY 11/12/17 [History Last Taken Unknown] amlodipine 5 mg tablet mg 09/15/22 [History Last Taken Unknown] duloxetine 60 mg capsule,delayed release 60 mg PO DAILY 11/05/22 [History Last Taken Unknown] lorazepam 0.5 mg tablet (Ativan) 0.5 mg PO BID 11/05/22 [History Last Taken Unknown] Allergy/AdvReac Type Severity Reaction Status Date / Time No Known Allergies Allergy Verified 11/05/22 17:53 Surgical History (Updated 11/05/22 @ 18:03 by Kiko Rodrigez) 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 Eyes: Negative for visual change. CVS: Positive for syncope. Negative for palpitations, chest pain. Respiratory: Negative for shortness of breath, cough. GI: Negative for abdominal pain, nausea, vomiting. : Negative for dysuria. Neuro: Negative for headache. Musc: Positive for left hip and lower leg pain. EXAM <GASPER Reveles - Last Filed: 11/05/22 19:37> Physical Exam Narrative Exam Narrative: CONST: Patient lying in bed with c-collar in place. No acute distress. EYES: Normal inspection. PERRLA, EOMI. Left upper eyelid has swelling and bruising. ENT: Bruising developing along left lower chin. Nares clear with no epistaxis or hematoma, no hemotympanum, normal oropharynx. No CSF otorrhea or rhinorrhea. NECK: C-collar in place, no midline spinal tenderness or step-offs RESP: No respiratory distress, CTAB. Tender palpation diffusely over left chest wall with no deformity or crepitus. CVS: Regular rate and rhythm, no murmur, no gallop. ABD: Soft and nontender, no guarding or rebound, nondistended. Back: Normal inspection, no midline spinal tenderness, no step off or crepitus. SKIN: Scattered bruises on upper and lower extremity in various stages of healing. Acute bruises along left lateral calf. EXTREMITIES: Full ROM of upper extremities, no bony tenderness, 2+ radial pulses. 5/5 community service manager strength. Lower extremities: No shortening or rotation, large bruise over left lateral calf. Tender to palpation of the left hip, knee, fibula with no deformity or crepitus. Left ankle slightly inverted which family states is chronic. 2+ DP pulses. NEURO: Oriented x4. PSYCH: Normal affect. Const Vital Signs: 11/05/22 17:48 11/05/22 18:03 11/05/22 18:48 Temperature 97.9 F Temperature Source Oral Pulse Rate 69 73 Respiratory Rate 14 14 Respiratory Effort Normal Non-Labored Blood Pressure 208/105 H 187/85 H Blood Pressure Mean 139 119 Pulse Ox 98 97 Oxygen Delivery Method Room Air 11/05/22 18:57 11/05/22 18:58 11/05/22 19:00 Temperature Temperature Source Pulse Rate 81 87 Respiratory Rate 14 16 Respiratory Effort Blood Pressure 163/79 H 130/70 H Blood Pressure Mean 107 90 Pulse Ox 95 95 98 Oxygen Delivery Method Room Air Room Air Room Air 11/05/22 19:04 11/05/22 19:12 11/05/22 19:14 Temperature Temperature Source Pulse Rate 85 83 85 Respiratory Rate 14 14 14 Respiratory Effort Blood Pressure 125/63 H 105/56 L 102/57 L Blood Pressure Mean 83 72 72 Pulse Ox 98 96 95 Oxygen Delivery Method Room Air Room Air 11/05/22 19:19 11/05/22 19:32 Temperature Temperature Source Pulse Rate 83 83 Respiratory Rate 12 14 Respiratory Effort Blood Pressure 108/60 110/61 Blood Pressure Mean 76 77 Pulse Ox 97 96 Oxygen Delivery Method Room Air <Dr. Uzair Ellis, DO - Last Filed: 11/05/22 22:04> Physical Exam Const Vital Signs: 11/05/22 17:48 11/05/22 18:03 11/05/22 18:48 Temperature 97.9 F Temperature Source Oral Pulse Rate 69 73 Respiratory Rate 14 14 Respiratory Effort Normal Non-Labored Blood Pressure 208/105 H 187/85 H Blood Pressure Mean 139 119 Pulse Ox 98 97 Oxygen Delivery Method Room Air 11/05/22 18:57 11/05/22 18:58 11/05/22 19:00 Temperature Temperature Source Pulse Rate 81 87 Respiratory Rate 14 16 Respiratory Effort Blood Pressure 163/79 H 130/70 H Blood Pressure Mean 107 90 Pulse Ox 95 95 98 Oxygen Delivery Method Room Air Room Air Room Air 11/05/22 19:04 11/05/22 19:12 11/05/22 19:14 Temperature Temperature Source Pulse Rate 85 83 85 Respiratory Rate 14 14 14 Respiratory Effort Blood Pressure 125/63 H 105/56 L 102/57 L Blood Pressure Mean 83 72 72 Pulse Ox 98 96 95 Oxygen Delivery Method Room Air Room Air 11/05/22 19:19 11/05/22 19:32 Temperature Temperature Source Pulse Rate 83 83 Respiratory Rate 12 14 Respiratory Effort Blood Pressure 108/60 110/61 Blood Pressure Mean 76 77 Pulse Ox 97 96 Oxygen Delivery Method Room Air MDM <GASPER Reveles - Last Filed: 11/05/22 19:37> [facility] Narrative Medical decision making narrative: History gathered from: Patient, spouse, daughter Patient had a syncopal episode with no prodrome and fell striking her head on the ground. This was witnessed and she was out for several seconds and then came to but was confused for about 10 minutes. She arrives awake alert with GCS of 15. BP 208/105 with otherwise normal vital signs. She does have scattered bruising across the left side of her face, c-collar in place with midline cervical tenderness, and left rib cage tenderness. Normal heart and lung sounds. Abdomen soft nontender. Pelvis stable. No spinal tenderness. She is moving all extremities but has pain and bruising along the left hip, knee, and lateral calf so x-rays and CT scans of the head, neck and chest were ordered. CT brain shows right hemispheric subdural hemorrhage with no midline shift. CT scans of the cervical spine and chest show no acute traumatic injuries. Left lower extremity x-rays also negative. Case was discussed with [facility] hemorrhagic stroke line who accepted the patient as a trauma and will arrange med flight with plan to take her immediately to the OR. Patient had been given 1 dose of IV hydralazine and then started on a Cardene drip per [facility] recommendations to a blood pressure of less than 140 which was achieved. Patient left with medflight in stable condition. 35 minutes of critical care time was consumed by discussion with patient and family, evaluation of patient, discussion with multiple consultants and arranging transfer. Lab Data Attestation: I reviewed the patient's lab results. Labs: Laboratory Results - last 24 hr 11/05/22 11/05/22 17:52 17:52 WBC 6.2 RBC 3.50 L Hgb 11.1 L Hct 33.2 L MCV 94.9 MCH 31.7 MCHC 33.4 RDW Std Deviation 40.2 RDW Coeff of Valeriy 11.7 Plt Count 306 MPV 10.5 Immature Gran % (Auto) 0.600 Neut % (Auto) 53.3 Lymph % (Auto) 33.3 Bollinger % (Auto) 10.4 H Eos % (Auto) 1.6 Baso % (Auto) 0.8 Absolute Neuts (auto) 3.3 Absolute Lymphs (auto) 2.06 Nucleated RBC % 0 Sodium 133 L Potassium 5.0 Chloride 96 L Carbon Dioxide 28.0 Anion Gap 9 BUN 20 H Creatinine 0.90 Estim Creat Clear Calc 43.07 Est GFR (MDRD) Af Amer 77 Est GFR (MDRD) Non-Af 63 BUN/Creatinine Ratio 22.3 H Glucose 121 H Calcium 9.4 Total Bilirubin 0.70 AST 37 ALT 27 Alkaline Phosphatase 86 Troponin I High Sens 4 Total Protein 6.8 Albumin 3.6 Globulin 3.2 Albumin/Globulin Ratio 1.1 Radiography Diagnostic Testing: Clinical Impression(s) from Imaging Studies Brain CT 11/05/22 18:02 IMPRESSION: Right hemispheric subdural hemorrhage with local mass effect. No midline shift. Short-term follow-up no imaging is recommended. Electronically Signed: Augustine Self MD at 19:07 EDT , ADDENDUM: 11/05/22 1918 IMPRESSION: Right hemispheric subdural hemorrhage with local mass effect. No midline shift. Short-term follow-up no imaging is recommended. N.B. : The above Results were Read Back by Augustine Self MD to GASPER Reveles, and understanding confirmed on 11/05/2022 19:11:58 (ET). Electronically Signed: Augustine Self MD at 19:07 EDT , Cervical Spine CT 11/05/22 18:02 IMPRESSION: No acute cervical spine osseous injury. Multilevel cervical spondylosis changes. See CT brain, right hemispheric extra-axial hemorrhage. Electronically Signed: Augustine Self MD at 19:14 EDT , Chest CT 11/05/22 18:02 IMPRESSION: No acute thoracic injury. Ascending aortic aneurysm. Cardiomegaly, coronary artery calcification. Old sternal and right rib fracture. Lumbar fusion hardware, partially imaged. Other chronic changes as described. Electronically Signed: Augustine Self MD at 19:20 EDT , Hip/Pelvis X-Ray 11/05/22 18:02 IMPRESSION: No acute osseous injury. Electronically Signed: Augustine Self MD at 19:32 EDT , Knee X-Ray 11/05/22 18:02 IMPRESSION: No acute osseous injury. Electronically Signed: Augustine Self MD at 19:27 EDT , Tibia/Fibula X-Ray 11/05/22 18:02 IMPRESSION: No acute osseous injury. Electronically Signed: Augustine Self MD at 19:30 EDT , ED attending interpretation of left hip shows bilateral hip arthroplasties with no evidence of acute fracture or dislocation. ED attending interpretation of left knee shows no acute fracture or dislocation. ED attending interpretation of left tibia/fibula shows no acute fracture or dislocation <Dr. Uzair Ellis, DO - Last Filed: 11/05/22 22:04> [facility] MDM Narrative Medical decision making narrative: History gathered from: Patient, spouse, daughter Patient had a syncopal episode with no prodrome and fell striking her head on the ground. This was witnessed and she was out for several seconds and then came to but was confused for about 10 minutes. She arrives awake alert with GCS of 15. BP 208/105 with otherwise normal vital signs. She does have scattered bruising across the left side of her face, c-collar in place with midline cervical tenderness, and left rib cage tenderness. Normal heart and lung sounds. Abdomen soft nontender. Pelvis stable. No spinal tenderness. She is moving all extremities but has pain and bruising along the left hip, knee, and lateral calf so x-rays and CT scans of the head, neck and chest were ordered. CT brain shows right hemispheric subdural hemorrhage with no midline shift. CT scans of the cervical spine and chest show no acute traumatic injuries. Left lower extremity x-rays also negative. Case was discussed with [facility] hemorrhagic stroke line who accepted the patient as a trauma and will arrange med flight with plan to take her immediately to the OR. Patient had been given 1 dose of IV hydralazine and then started on a Cardene drip per [facility] recommendations to a blood pressure of less than 140 which was achieved. Patient left with medflight in stable condition. 35 minutes of critical care time was consumed by discussion with patient and family, evaluation of patient, discussion with multiple consultants and arranging transfer. This patient was seen with a PA/DRAFTING DETAILER Individually assessed they patient including history and physical. I have reviewed everything on the chart that is available and agree with the documentation provided by the PA/DRAFTING DETAILER including discussion about the assessment, treatment plan, discussion, and return precautions. 87-year-old female with an episode of syncope striking her head on the ground. She was unconscious for several minutes and was very confused when she woke up. She arrives by EMS with a GCS of 15. She is hypertensive. Patient taken directly to CT for CT head and cervical spine. Prior to the interpretation by the radiologist I was able to see that the patient had a subdural hematoma. I immediately called [facility] for transfer. Patient not anticoagulated so there is no reversal needed. Blood pressure was elevated so she was given a dose of hydralazine initially. she still awake and alert with a GCS of 15. She was accepted by [facility]. They recommended a Cardene drip. This was started. By the time med flight arrived to the patient's blood pressure had improved to 110/61. X-rays of the left hip left knee left tib-fib were all obtained as well. CT cervical spine was negative. X-rays of the left hip, knee, tib-fib were all negative on my interpretation and show no fracture or subluxation. CT of the chest not show any acute findings. Lab work today shows a white blood cell count of 6.2. He hemoglobin 11.1, platelets normal. Renal function and electrolytes unremarkable. High-sensitivity troponin is 4. Lab Data Labs: Laboratory Results - last 24 hr 11/05/22 11/05/22 17:52 17:52 WBC 6.2 RBC 3.50 L Hgb 11.1 L Hct 33.2 L MCV 94.9 MCH 31.7 MCHC 33.4 RDW Std Deviation 40.2 RDW Coeff of Valeriy 11.7 Plt Count 306 MPV 10.5 Immature Gran % (Auto) 0.600 Neut % (Auto) 53.3 Lymph % (Auto) 33.3 Bollinger % (Auto) 10.4 H Eos % (Auto) 1.6 Baso % (Auto) 0.8 Absolute Neuts (auto) 3.3 Absolute Lymphs (auto) 2.06 Nucleated RBC % 0 Sodium 133 L Potassium 5.0 Chloride 96 L Carbon Dioxide 28.0 Anion Gap 9 BUN 20 H Creatinine 0.90 Estim Creat Clear Calc 43.07 Est GFR (MDRD) Af Amer 77 Est GFR (MDRD) Non-Af 63 BUN/Creatinine Ratio 22.3 H Glucose 121 H Calcium 9.4 Total Bilirubin 0.70 AST 37 ALT 27 Alkaline Phosphatase 86 Troponin I High Sens 4 Total Protein 6.8 Albumin 3.6 Globulin 3.2 Albumin/Globulin Ratio 1.1 Radiography Diagnostic Testing: Clinical Impression(s) from Imaging Studies Brain CT 11/05/22 18:02 IMPRESSION: Right hemispheric subdural hemorrhage with local mass effect. No midline shift. Short-term follow-up no imaging is recommended. Electronically Signed: Augustine Self MD at 19:07 EDT , ADDENDUM: 05/18/23 1918 IMPRESSION: Right hemispheric subdural hemorrhage with local mass effect. No midline shift. Short-term follow-up no imaging is recommended. N.B. : The above Results were Read Back by Augustine Self MD to GASPER Reveles, and understanding confirmed on 11/05/2022 19:11:58 (ET). Electronically Signed: Augustine Self MD at 19:07 EDT , Cervical Spine CT 11/05/22 18:02 IMPRESSION: No acute cervical spine osseous injury. Multilevel cervical spondylosis changes. See CT brain, right hemispheric extra-axial hemorrhage. Electronically Signed: Augustine Self MD at 19:14 EDT , Chest CT 11/05/22 18:02 IMPRESSION: No acute thoracic injury. Ascending aortic aneurysm. Cardiomegaly, coronary artery calcification. Old sternal and right rib fracture. Lumbar fusion hardware, partially imaged. Other chronic changes as described. Electronically Signed: Augustine Self MD at 19:20 EDT , Hip/Pelvis X-Ray 11/05/22 18:02 IMPRESSION: No acute osseous injury. Electronically Signed: Augustine Self MD at 19:32 EDT , Knee X-Ray 11/05/22 18:02 IMPRESSION: No acute osseous injury. Electronically Signed: Augustine Self MD at 19:27 EDT , Tibia/Fibula X-Ray 11/05/22 18:02 IMPRESSION: No acute osseous injury. Electronically Signed: Augustine Self MD at 19:30 EDT , <Dr. Uzair Ellis, DO - Last Filed: 11/05/22 22:04> Critical Care Time Critical care time (excluding procedures): 30-74 minutes (35), Discussing w/Patient &/or Family/Gi Tech, Discussing w/Consultants, Arranging Admission or Transfer and Performing Direct Patient Care at Bedside Discharge Plan Triage Chief Complaint: Syncope Other Complaint: Fall ED Midlevel Provider: Gemma Mcconnell ED Provider: Uzair Ellis Dx/Rx/DC Orders Clinical Impression: Syncope, Hypertensive emergency, Subdural hemorrhage, Cervicalgia, Contusion of rib on left side Prescriptions: No Action clonidine HCl 0.1 MG tablet 0.1 mg PO DAILY labetalol 200 MG tablet 200 mg PO BID diltiazem HCl 240 MG capsule 240 mg PO DAILY Premarin 0.625 MG tablet 1 dose transdermal QWEEK aspirin 81 MG tablet,chewable 81 mg PO DAILY@0800 furosemide 20 MG tablet 20 mg PO DAILY PRN (Reason: EDEMA) Hair,Skin and Nails 1 EACH tablet 1 ea PO DAILY lisinopril 40 MG tablet 40 mg PO DAILY amlodipine 5 mg tablet Label Comments: TAKE 1 TABLET BY MOUTH DAILY lorazepam [Ativan] 0.5 mg Tablet 0.5 mg PO BID duloxetine 60 mg Capsule,Delayed Release(Dr/Ec) 60 mg PO DAILY Primary Care Provider: Eli Patel Referrals: Eli Patel MD [Primary Care Provider] - Disposition Disposition: Acute Care Hospital Discharge Location: [facility] Discharge Date/Time: 11/05/22 19:54
[2022-11-05 18:30] LABS: Absolute Lymphocyte Count 2.06 X10^3/uL (0.83-4.51); Absolute Neutrophil Count 3.3 X10^3/uL (2.0-7.7); Basophil# 0.05 X10^3/uL; Basophil% 0.8 % (0-1); Eosinophils% 1.6 % (0-5); Hematocrit 33.2 % (37-47); Hemoglobin 11.1 g/dL (12.0-15.0); Lymphocyte # 2.06 X10^3/ul (0.83-4.51); Lymphocyte % 33.3 % (19-41); Mean Corp Hgb Conc 33.4 g/dL (32-36); Mean Corpuscular Hgb 31.7 pg (27.0-32.0); Mean Corpuscular Volume 94.9 fL (81-99); Mean Platelet Vol. 10.5 fl (6.2-12.0); Monocyte# 0.64 X10^3/uL; Monocyte% 10.4 % (0-10); NRBC Flagged by Analyzer 0 % (0-5); Neutrophil # 3.29 X10^3/uL (2.7-7.7); Neutrophil % 53.3 % (47-70); Platelet Count 306 K/mm3 (150-450); RBC Distribution Width CV 11.7 % (11.6-14.6); RBC Distribution Width SD 40.2 fl (35.1-43.9); White Blood Count 6.2 K/mm3 (4.4-11.0)
[2022-11-05 18:32] LABS: ALB/GLOB Ratio 1.1 RATIO (0.9-2.4); AST(SGOT) 37 U/L (15-37); Alanine Aminotransfer ALT/SGPT 27 U/L (13-56); Albumin, Serum 3.6 g/dL (3.2-5.0); Alkaline Phosphatase 86 U/L (45-117); Anion Gap 9 (5-15); BUN 20 mg/dL (7-18); BUN/Creat Ratio 22.3 RATIO (10-20); Calcium,Total 9.4 mg/dL (8.5-10.1); Chloride 96 mmol/L (98-107); EST Glomerular Filtration Rate 63 mL/min (>60); Est Glom Filt Rate - Afr Amer 77 mL/min (>60); Estimated Creatinine Clearance 43.07 ml/min; Globulin 3.2 g/dL (2.2-4.2); Glucose 121 mg/dL (74-106); Protein, Total 6.8 g/dL (6.4-8.2); Sodium Level 133 mmol/L (136-145); Troponin-I HS 4 pg/mL (3.0-54.0)
[2022-11-05] MEDS: hydrALAZINE 20 MG/ML Vial IV (18:38)
[2022-11-05] MEDS: Nicardipine HCl-0.9% Sod Chlor 20 MG/200 ML IV.SOLN 50 MG CONT INF (18:48)
[2022-11-05] MEDS: fentaNYL 100 MCG/2 ML Ampul 25 MCG IV (19:02)
--- NOTE | 2022-11-05 19:47 | CM.ED ---
Social Work SW introduced self and role. Pt and family requested to do HCPOA paperwork. [id number] Marion Granado, present and reports that they had an appointment to do new HCPOA paperwork with an transactional attorney in 2 weeks due to patient's spouse, Cresencio Urban, having cognitive concerns regarding the ability to make healthcare decisions. SW spoke with patient directly who named her [id number], Marion, and her son, Sudarshan, as people she would like have as her HCPOA. Spouse Cresencio present in the room and does present as having some confusion. Patient presents as oriented and of sound mind and confirmed additionally that she wants new paperwork to reflect Marion and Sudarshan Urban to assist her in medical decisions if necessary. SW completed HCPOA paperwork with patient. Erna Shoemaker STEEL CHIPPER, ENT SURGEON
== END 2022-11-05 19:54 | disposition short-term general hospital (02) ==
LOC: ED 18:33
PROVIDERS: Physician Assistant; Emergency Provider Student in an Organized Health Care Education/Training Program; PCP Student in an Organized Health Care Education/Training Program; Visit Provider Student in an Organized Health Care Education/Training Program
DX: R55 Syncope and collapse (principal); I62.00 Nontraumatic subdural hemorrhage, unspecified; I16.1 Hypertensive emergency; S20.212A Contusion of left front wall of thorax, initial encounter; Z87.891 Personal history of nicotine dependence; M54.2 Cervicalgia; I10 Essential (primary) hypertension; W18.39XA Other fall on same level, initial encounter; Z79.82 Long term (current) use of aspirin; Z79.899 Other long term (current) drug therapy; Z79.818 Long term (current) use of other agents affecting estrogen receptors and estrogen levels; Z96.643 Presence of artificial hip joint, bilateral; Z96.653 Presence of artificial knee joint, bilateral
CPT/HCPCS: 70450; 71250; 72125; 73502; 73560; 73590; 80053; 84484; 85025; 99285; A4216

== ENCOUNTER → 2022-12-04 | Outpatient (CLI) | payer MEDICARE, OTHER, SELFPAY ==
--- NOTE | 2022-12-04 14:51 | CT_ITS ---
STUDY: CT BRAIN WITHOUT CONTRAST REASON FOR EXAM: Female, 87 years old. TRAUMA RADIATION DOSAGE (If Supplied By Facility): CTDIvol = ( 44.99 ) mGy, DLP = ( 812.98 ) mGycm TECHNIQUE: Transaxial CT imaging of the brain was performed without administration of intravenous contrast material. Individualized dose optimization techniques were used for this CT. COMPARISON: 11/05/2022 FINDINGS: Stable 1.7 cm soft tissue mass of the left scalp, otherwise negative soft tissue structures. Normal calvarium. Since prior study patient previous small right subdural hematoma has developed into a small right subdural hygroma, approximately 5.5 mm greatest thickness. Mild mass effect on the underlying cerebral hemisphere with effacement of sulci. No midline shift. There is mild cerebral atrophy with widening of the extra-axial spaces and ventricular dilatation. There are areas of decreased attenuation within the white matter tracts of the supratentorial brain, consistent with microvascular disease changes. There are bilateral lacunar infarcts of the basal ganglia and thalami. Normal brainstem. There is mild cerebellar atrophy. There is no intracranial hemorrhage. There are no findings of an acute ischemic infarction. Normal visualized paranasal sinuses. CT/Brain/Head without Contrast IMPRESSION: No definite acute abnormality. Small right subdural hygroma. Atrophy and white matter disease, stable. Electronically Signed: Carlos Alberto Handy MD at 20:45 EDT ,
== END | disposition home or self-care (01) ==
PROVIDERS: PCP Student in an Organized Health Care Education/Training Program
DX: S06.5XAA Traumatic subdural hemorrhage with loss of consciousness status unknown, initial encounter (principal); T14.90XA Injury, unspecified, initial encounter
CPT/HCPCS: 70450